=== PATIENT | male | born 1940 ===

== ENCOUNTER 2025-10-06 08:01 | Day surgery (SDC) | payer MEDICAID, MEDICARE ==
[~2025-10-06] VITALS: Ht 175.3 cm; Wt 78.7 kg
[~2025-10-06 08:01] MED LIST: AMLO5TAB PO; FINA5TAB11 PO; LEVA15HF9 INH; LEVO50CA5 PO; MOME13HF11 INH; TAMS-55 PO; ringers solution, lacted 1,000 ML IV SCH; simethicone 40mg/0.6ml oral drops 15ml ONE
[2025-10-06 08:34] VITALS: BP 144/70; PULSE 65; RESP 17; TEMP 97.3; O2SAT 98
[2025-10-06] MEDS ORDERED: MIDAZolam 1 MG/ML 5ML VIAL ONE (10:31)
[2025-10-06] MEDS ORDERED: fentaNYL/PF 50MCG/1 ML 2ML syringe ONE (10:32)
[2025-10-06 10:50] VITALS: BP 145/73; PULSE 61; RESP 12; O2SAT 97
[2025-10-06 11:00] VITALS: BP 138/64; PULSE 63; RESP 14; O2SAT 94
[2025-10-06 11:10] VITALS: BP 146/69; PULSE 63; RESP 13; O2SAT 93
[2025-10-06 11:20] VITALS: BP 140/72; PULSE 64; RESP 12; O2SAT 94
[2025-10-06 11:30] VITALS: BP 158/81; PULSE 74; RESP 14; O2SAT 96
== END 2025-10-06 11:40 | disposition home or self-care (01) ==
LOC: PRE-OP 08:01
PROVIDERS: ATTEND Internal Medicine Gastroenterology
DX: K92.1 Melena (principal); R19.4 Change in bowel habit; I10 Essential (primary) hypertension; E03.9 Hypothyroidism, unspecified; I25.2 Old myocardial infarction; J44.9 Chronic obstructive pulmonary disease, unspecified; Z79.890 Hormone replacement therapy; Z79.899 Other long term (current) drug therapy; Z88.8 Allergy status to other drugs, medicaments and biological substances
CPT/HCPCS: 45378; A4620; J2250; J3010; J7120; Z7512; Z7610; 99152

== ENCOUNTER 2025-11-01 09:20 | Emergency (ER) | payer MEDICAID ==
[~2025-11-01] VITALS: Ht 175.3 cm; Wt 81.0 kg
[~2025-11-01 09:20] MED LIST changes: -ringers solution, lacted 1,000 ML IV SCH; -simethicone 40mg/0.6ml oral drops 15ml ONE
--- NOTE | 2025-11-01 10:55 | Physician Documentation ---
History of Present Illness ~ Chief Complaint: Diarrhea Stated Complaint: DIARRHEA Time Seen by MD: 10:08 Mode of Arrival: EMS HPI 85-year-old male presenting with one episode of dark colored diarrhea this morning. Patient states that otherwise he feels fine. He reports that this morning he felt a sudden urge to defecate and before he could make it to the toilet he had one very large episode of diarrhea which is dark in color. He states that afterwards he has felt fine and right now he has no symptoms. This was concerning to him however as this has never happened before. He also states that over the past couple of months he has noticed that his stools are darker than usual. He otherwise denies any dizziness, weakness, chest pain, fever, chills or any other associated symptoms. Medication Reconciliation Allergies: Coded Allergies: Penicillins (Verified Allergy, Intermediate, "FEELS LIKE TEARING HAIR OUT", 10/05/25) aspirin (Verified Allergy, Unknown, 10/05/25) Scheduled Amlodipine Besylate (Amlodipine Besylate), 1 TABLET PO DAILY, (Reported) Ciprofloxacin Hcl (Ciprofloxacin Hcl), 1 TAB PO Q12H Finasteride (PROSCAR tablet), 5 MG PO DAILY, (Reported) Levothyroxine Sodium (Levothyroxine), 1 CAP PO DAILY, (Reported) Mometasone/Formoterol (Dulera 200 Mcg/5 Mcg Inhaler), 1 PUFF INH Q12H, (Reported) Tamsulosin Hcl* (Flomax*), 1 TAB PO HS, (Reported) Scheduled PRN Levalbuterol Tartrate (Xopenex Hfa), 2 PUFF INH Q6H PRN for SOB or wheezing, (Reported) Review of Systems All Other Systems at this time: Reviewed and Negative Physical Exam Vital Signs: Temperature: 97.1, Source: Oral, Respiratory Rate: 15, BP: 128/64, Pulse Oximetry: 97, Weight: 81.000 Oxygen Flow Rate: 0 Physical Exam I have reviewed the triage vitals. CONST: Well developed and well nourished. In no acute distress HENT: Head Atraumatic EYES: Pupils are equal, round and reactive to light. Normal conjunctiva NECK: Normal range of motion. Supple. CARDIO: Normal rate and regular rhythm. No murmurs, rubs, or gallops. S1, S2. PULM/CHEST: No respiratory distress. Lungs clear to auscultation. No wheeze ABD: Soft and nontender. Nondistended. Bowel sounds normal. No guarding. : Exam deferred MSK: No edema. No deformity. NEURO: Alert and oriented to person, place and time. Moving all extremities SKIN: Warm and dry. PSYCH: Normal mood and affect. Good eye contact. Progress Results/Orders Results/Orders Orders - WAGNER MCDANIEL MD Cult Urine + [address] [address] (11/01/25 13:12) Completed Orders - WAGNER MCDANIEL MD Cbc/Diff (11/01/25 10:51) MG (11/01/25 10:51) Lipase (11/01/25 10:51) Pt Inr (11/01/25 10:51) PTT (11/01/25 10:51) Electrocardiogram (11/01/25 10:51) CMP (11/01/25 10:51) Ua W/Microscopic, Cult If Ind (11/01/25 12:53) Vital Signs 11/01/25 11/01/25 11/01/25 09:33 09:40 15:20 Temp 97.1 98.3 Pulse 61 Resp 15 15 16 B/P (MAP) 128/64 145/82 Pulse Ox 97 98 O2 Flow Rate 0 Laboratory Tests Test 11/01/25 11:47 11/01/25 12:53 White Blood Count 7.4 Red Blood Count 5.18 Hemoglobin 15.5 Hematocrit 46.7 Mean Corpuscular Volume 90.1 Mean Corpuscular Hemoglobin 29.9 Mean Corpuscular Hemoglobin Concent 33.2 Red Cell Distribution Width 14.3 Platelet Count 214 Mean Platelet Volume 9.0 Neutrophils (%) (Auto) 55.4 Lymphocytes (%) (Auto) 20.3 L Monocytes (%) (Auto) 11.7 Eosinophils (%) (Auto) 11.7 H Basophils (%) (Auto) 0.9 Neutrophils # (Auto) 4.1 Lymphocytes # (Auto) 1.5 Monocytes # (Auto) 0.9 Eosinophils # (Auto) 0.9 Basophils # (Auto) 0.1 CBC Comment Prothrombin Time 10.6 INR International Normalized Ratio 1.0 Activated Partial Thromboplast Time 27 Coagulation Comments Sodium Level 143 Potassium Level 4.0 Chloride Level 108 H Carbon Dioxide Level 28.2 Anion Gap 7 L Blood Urea Nitrogen 20 H Creatinine 0.97 Estimated GFR/1.73 m2 73 BUN/Creatinine Ratio 20.6 H Glucose Level 105 H Calcium Level 8.4 L Magnesium Level 2.5 H Total Bilirubin 0.4 Aspartate Amino Transf (AST/SGOT) 19 Alanine Aminotransferase (ALT/SGPT) 24 Alkaline Phosphatase 106 Total Protein 7.1 Albumin 3.2 L Globulin 3.9 Albumin/Globulin Ratio 0.8 L Lipase 24 Chemistry Comments Urine Specimen Description Voided Urine Color Yellow Urine Clarity Clear Urine pH 5.5 Urine Specific [place] 1.025 Urine Protein Negative Urine Glucose (UA) Negative Urine Ketones Negative Urine Occult Blood Trace-intact Urine Nitrite Negative Urine Bilirubin Negative Urine Urobilinogen 0.2 Urine Leukocyte Esterase Small H Urine RBC 0-2 Urine WBC 20-30 H Urine WBC Clumps Few Urine Squamous Epithelial Cells Few Urine Bacteria Few Urine Mucus None seen Urine Culture Indicated Indicated Volume Urine Centrifuged 10 ml Urine Comment Microbiology Date/Time Source Procedure Growth Status 11/01/25 13:12 Urine Voided Urine Culture - Preliminary Culture received. Resulted Medical Decision Making Additional information obtaine: old records Findings - Diff Dx GI Bleed:Consideration: Include: Diverticulitis Diff Dx Pain:Considerations: Include: Other Diff Dx N/V/D:Considerations: Include: UTI Diff Dx Rectal:Considerations: Include: Other Additional Comments 85-year-old male presenting with one episode of diarrhea. He is otherwise asymptomatic aside from some mild burning on urination which he endorsed after the fact. His workup is significant only for a potential urinary tract infection as his UA was suggestive of this. He is otherwise stable. Remainder of workup was unremarkable. All lab were reviewed. His vitals are normal. I believe that he is stable and safe for discharge home. I did consider all social determinant of health. 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 I will prescribe him a seven day course of ciprofloxacin for his UTI. I advised him take the medication as prescribed. Follow up closely with primary care physician in the next 1-2 weeks. Return to the ED with any acutely worsening symptoms. Departure Disposition: HOME / SELF CARE / HOMELESS (ERASED) Impression: Primary Impression: UTI (urinary tract infection) Additional Impression: Gastroenteritis Condition: Stable Discharge Instructions: Urinary Tract Infection, Adult Referrals: NO PRIMARY CARE PROVIDER (PCP) Prescriptions Ciprofloxacin Hcl (Ciprofloxacin Hcl) 500 Mg Tablet 1 TAB PO Q12H for 7 Days, #14 TAB Prov: WAGNER MCDANIEL MD 11/01/25 [facility] Form Admit Criteria Met or Not Met: NO Signature Scribe Signature: 1 Attestation: The note accurately reflects work and decisions made by me.Wagner Funes MD 11/01/25 14:40 WAGNER MCDANIEL MD Nov 01, 2025 10:55
--- NOTE | 2025-11-01 11:01 | ELECTROCARDIOGRAPH REPORT ---
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 Donte Taveras Measurements Intervals Danielson Rate: 55 P: 58 MA: 171 QRS: 38 QRSD: 85 T: 33 QT: 427 QTc: 409 Interpretive Statements Slow sinus arrhythmia Baseline wander in lead(s) V1 Electronically Signed On 11-02-2025 11:18:[address] Donte Taveras Please click the below link to view image of tracing.
[2025-11-01 12:10] LABS: MEAN PLATELET VOLUME 9.0 FL (7.4-10.4); RED CELL DISTRIBUTION WIDTH 14.3 % (11.5-14.5)
[2025-11-01 12:11] LABS: APTT 27 SECONDS (22-32); INR 1.0 INR
[2025-11-01 12:15] LABS: CREATININE 0.97 MG/DL (0.60-1.10); TOTAL CARBON DIOXIDE 28.2 MMOL/L (24-32); eCRCL 54 ML/MIN; eGFR 73 ML/MIN
[2025-11-01 13:00] LABS: LEUKOCYTE ESTERASE ,URINE SMALL (Neg); NITRITES, URINE NEGATIVE (Neg); OCCULT BLOOD,URINE TRACE-INTACT (Neg)
[2025-11-01 13:05] LABS: UA COLLECTION TYPE VOIDED
[2025-11-01 13:12] LABS: MUCUS STRANDS NONE SEEN /LPF (Neg); SQUAMOUS EPITHELIAL CELL,UR FEW /LPF (FEW); WBC CLUMPS,URINE FEW /HPF (NEGATIVE)
[2025-11-01] MEDS ORDERED: CIPR-546 PO (14:37)
[2025-11-01 15:20] VITALS: BP 145/82; PULSE 61; RESP 16; TEMP 98.3; O2SAT 98
== END 2025-11-01 14:45 | disposition home or self-care (01) ==
LOC: ER 09:21
DX: N39.0 Urinary tract infection, site not specified (principal); K52.9 Noninfective gastroenteritis and colitis, unspecified; I49.9 Cardiac arrhythmia, unspecified; Z88.0 Allergy status to penicillin; Z88.6 Allergy status to analgesic agent; Z79.899 Other long term (current) drug therapy
CPT/HCPCS: 36415; 80053; 81001; 83690; 83735; 85025; 85610; 85730; 87088; 93005; 99284